=== PATIENT | female | born 1990 | race African-American/Black ===

== ENCOUNTER 2019-02-06 01:05 | Emergency (ER) | payer MEDICAID | END 2019-02-06 01:31 | disposition left against medical advice (07) | LOC: ER 01:20 | DX: M79.605 Pain in left leg (principal); Z53.21 Procedure and treatment not carried out due to patient leaving prior to being seen by health care provider ==

== ENCOUNTER 2020-02-14 08:36 | Emergency (ER) | payer OTHER ==
[~2020-02-14] VITALS: Ht 167.6 cm; Wt 55.0 kg
[2020-02-14] MEDS ORDERED: DIPHENHYDRAMINE 50MG/ML VIAL IM STA (09:45)
[2020-02-14] MEDS ORDERED: HALOPERIDOL LACTATE 5MG/ML VIAL IM STA (09:45)
[2020-02-14] MEDS ORDERED: LORAZEPAM 2MG/ML CPJ IM STA (09:45)
[2020-02-14 10:36] LABS: BASOPHILS % 0.6 % (0.0-2.0); EOSINOPHILS % 1.9 % (0.0-5.0); HEMATOCRIT. 33.2 % (36.0-48.0); HEMOGLOBIN. 11.1 g/dL (12.0-16.0); LYMPHOCYTES % 18.6 % (20.0-50.0); MEAN CORPUSCULAR HEMOGLOBIN 29.3 pg (28.0-32.0); MEAN CORPUSCULAR VOLUME 88.1 fL (81.0-99.0); MEAN PLATELET VOLUME 6.7 fl (7.4-10.4); MONOCYTES % 8.6 % (2.0-8.0); NEUTROPHILS % 70.3 % (40.0-76.0); PLATELET 263 x1000/uL (130-400); RED BLOOD CELL COUNT 3.77 mill/uL (4.2-5.4); RED CELL DISTRIBUTION WIDTH 17.3 % (11.6-14.6)
[2020-02-14 10:52] LABS: CHLORIDE 106 mEq/L (98-107)
[2020-02-14 10:57] LABS: ETHANOL BLOOD < 10 mg/dL
[2020-02-14 11:47] LABS: HCG SCREEN NEGATIVE
[2020-02-14 12:26] LABS: CLARITY URINE CLEAR (CLEAR); COLOR URINE YELLOW (YELLOW); KETONES URINE NEGATIVE (NEGATIVE); LEUKOCYTE ESTERASE URINE NEGATIVE (NEGATIVE); NITRITE URINE NEGATIVE (NEGATIVE); OCCULT BLOOD URINE 3+ (NEGATIVE); PROTEIN URINE NEGATIVE (NEGATIVE); SPECIFIC GRAVITY URINE 1.009 (1.005-1.030); UROBILINOGEN URINE 0.2 E.U./dL (0.2-1.0)
[2020-02-14 12:43] LABS: *BARBITURATES SCREEN URINE NEGATIVE (NEGATIVE)
[2020-02-14 12:44] LABS: *BENZODIAZEPINES SCREEN URINE NEGATIVE (NEGATIVE); *COCAINE SCREEN URINE NEGATIVE (NEGATIVE); METHADONE URINE SCREEN NEGATIVE (NEGATIVE); OPIATES URINE SCREEN NEGATIVE (NEGATIVE); PHENCYCLIDINE URINE SCREEN NEGATIVE (NEGATIVE)
[2020-02-14 12:55] LABS: *AMPHETAMINES SCREEN URINE PRESUMTIVE POSITIVE (NEGATIVE); CANNABINOID URINE SCREEN PRESUMTIVE POSITIVE (NEGATIVE)
[2020-02-15] VITALS: BP 112/69
== END 2020-02-15 01:14 | disposition home or self-care (01) ==
LOC: ER 08:55
DX: F19.10 Other psychoactive substance abuse, uncomplicated (principal); I10 Essential (primary) hypertension; F20.9 Schizophrenia, unspecified; F31.9 Bipolar disorder, unspecified; F17.200 Nicotine dependence, unspecified, uncomplicated
CPT/HCPCS: 36415; 80053; 80305; 80307; 80320; 80329; 81003; 81025; 84443; 84703; 85025; 96372; 99285; J1200; J1630; J2060; G0480

== ENCOUNTER 2020-08-06 19:28 | Emergency (ER) | payer MEDICAID, OTHER ==
[~2020-08-06] VITALS: Ht 175.3 cm; Wt 73.0 kg
[2020-08-06 19:37] VITALS: BP 111/79
[2020-08-06] MEDS ORDERED: ONDANSETRON 4MG ODT PO STA (21:21)
[2020-08-06 23:59] LABS: BASOPHILS % 0.5 % (0.0-2.0); EOSINOPHILS % 0.2 % (0.0-5.0); HEMATOCRIT. 38.6 % (36.0-48.0); HEMOGLOBIN. 12.8 g/dL (12.0-16.0); MEAN CORPUSCULAR HEMOGLOBIN 28.3 pg (28.0-32.0); MEAN CORPUSCULAR VOLUME 85.4 fL (81.0-99.0); MEAN PLATELET VOLUME 6.7 fl (7.4-10.4); MONOCYTES % 4.3 % (2.0-8.0); PLATELET 536 x1000/uL (130-400); RED BLOOD CELL COUNT 4.52 mill/uL (4.2-5.4)
[2020-08-07 00:07] LABS: CHLORIDE 105 mEq/L (98-107)
[2020-08-07 00:09] LABS: PROTHROMBIN TIME 10.9 sec (9.6-11.0)
[2020-08-07 00:23] LABS: HCG SCREEN NEGATIVE
== END 2020-08-07 03:19 | disposition left against medical advice (07) ==
LOC: ER 20:19
DX: R11.2 Nausea with vomiting, unspecified (principal); R05 Cough; R10.84 Generalized abdominal pain; Z53.21 Procedure and treatment not carried out due to patient leaving prior to being seen by health care provider
CPT/HCPCS: 36415; 80053; 84703; 85025